=== PATIENT | female | born 1965 | race Caucasian/White ===

== ENCOUNTER → 2016-08-07 | Outpatient (CLI) | payer BC ==
[~2016-08-07] MED LIST: ATIVAN0.5 MG PO; FLEXERIL10 MG PO; LIPITOR80 MG PO; METOPROLOL25 MG PO; MOTRIN800 MG PO
== END | disposition home or self-care (01) ==
LOC: US 07:15
DX: I65.21 Occlusion and stenosis of right carotid artery (principal); R09.89 Other specified symptoms and signs involving the circulatory and respiratory systems